=== PATIENT | female | born 1970 | race Caucasian/White ===

== ENCOUNTER → 2024-05-27 09:49 | Outpatient (REF) | payer BC, SELFPAY | LOC: HWRAD 09:49 | PROVIDERS: ATTENDING PHYSICIAN Family Medicine | DX: R94.6 Abnormal results of thyroid function studies (principal); Z83.49 Family history of other endocrine, nutritional and metabolic diseases; E03.9 Hypothyroidism, unspecified; Z12.31 Encounter for screening mammogram for malignant neoplasm of breast; Z13.820 Encounter for screening for osteoporosis | CPT/HCPCS: 76536; 77063; 77067; 77080 ==